=== PATIENT | male | born 1960 | race Caucasian/White ===

== ENCOUNTER 2023-12-10 08:51 | Emergency (ER) | payer OTHER, SELFPAY ==
[2023-12-10] MEDS ORDERED: TRAMADOL HCL 50 MG TAB ONE (09:14)
[2023-12-10] MEDS ORDERED: GABAPENTIN 300 MG CAP ONE (09:14)
--- NOTE | 2023-12-10 10:31 | ER ---
Nurse's Notes [facility] Name: Tani Del Toro Age: 63 yrs Sex: Male : 1960 Arrival Date: 12/10/2023 Time: 08:51 Bed 5 Private MD: Diagnosis: Strain of other muscles, fascia and tendons at shoulder and upper arm level, left arm;Strain of muscle(s) and tendon(s) of the rotator cuff of left shoulder Presentation: 12/09 08:56 Chief complaint: Patient states: 2 days ago was gardening and left shoulder has been aa5 hurting since then. Pt also states "the right side of my jaw feels sore when I bite down". 08:56 Coronavirus screen: At this time, the client does not indicate any symptoms associated aa5 with coronavirus-19. Ebola Screen: Patient denies travel to an Ebola-affected area in the 21 days before illness onset. Initial Sepsis Screen: Does the patient meet any 2 criteria? No. Patient's initial sepsis screen is negative. Does the patient have a suspected source of infection? No. Patient's initial sepsis screen is negative. Risk Assessment: Do you want to hurt yourself or someone else? Patient reports no desire to harm self or others. Onset of symptoms was November 2023. 08:56 Acuity: ROBBIE 3 aa5 08:56 Method Of Arrival: Ambulatory aa5 Historical: - Allergies: 09:06 No Known Allergies; aa5 - Home Meds: 09:06 Metoprolol Tartrate Oral [Active]; atorvastatin oral [Active]; aa5 - PMHx: 09:06 Hypertensive disorder; Hypercholesterolemia; aa5 - PSHx: 09:06 right knee replacement; aa5 - Immunization history:: Adult Immunizations unknown. - Infectious Disease History:: Denies. - Social history:: Smoking status: Patient denies any tobacco usage or history of. - Family history:: not pertinent. - Hospitalizations: : No recent hospitalization is reported. Screenin:00 [facility] ED Fall Risk Assessment (Adult) History of falling in the last 3 months, aa5 including since admission No falls in past 3 months (0 pts) Confusion or Disorientation No (0 pts) Intoxicated or Sedated No (0 pts) Impaired Gait No (0 pts) Mobility Assist Device Used No (0 pt) Altered Elimination No (0 pt) Score/Fall Risk Level 0 - 2 = Low Risk Oriented to surroundings, Maintained a safe environment, Educated pt \\T\\ family on fall prevention, incl call for assistance when getting out of bed. Abuse screen: Denies threats or abuse. Nutritional screening: No deficits noted. Tuberculosis screening: No symptoms or risk factors identified. Assessment: 08:56 General: Appears in no apparent distress. comfortable, Behavior is calm, cooperative, aa5 appropriate for age. Pain: Complains of pain in left shoulder Pain currently is 0 out of 10 on a pain scale. Quality of pain is described as sharp, Pain began 2-3 days ago. Is intermittent, Aggravated by movement. Neuro: Level of Consciousness is awake, alert, obeys commands, Oriented to person, place, time, situation. Cardiovascular: Denies chest pain, Patient's skin is warm and dry. Respiratory: Airway is patent Respiratory effort is even, unlabored, Respiratory pattern is regular, symmetrical, Denies shortness of breath. GI: No signs and/or symptoms were reported involving the gastrointestinal system. : No signs and/or symptoms were reported regarding the genitourinary system. EENT: No signs and/or symptoms were reported regarding the EENT system. Derm: Skin is pink, warm \\T\\ dry. Musculoskeletal: Reports pain in left shoulder. 09:25 Reassessment: Patient is alert, oriented x 3, equal unlabored respirations, skin aa5 warm/dry/pink. Vital Signs: 08:56 BP 145 / 100; Pulse 97; Resp 18 S; Temp 97.7(TE); Pulse Ox 95% on R/A; Weight 115.67 kg aa5 (R); Height 6 ft. 4 in. (R); 08:56 Body Mass Index 31.04 (115.67 kg, 193.04 cm) aa5 ED Course: 08:55 Patient arrived in ED. im 08:56 Markos Elam MD is Attending Physician. rn 08:56 Arm band placed on. aa5 08:56 Patient has correct armband on for positive identification. Placed in gown. Bed in low aa5 position. Call light in reach. Side rails up X 1. Adult w/ patient. Pulse ox on. NIBP on. 08:57 Angela Maldonado, TEMO is Primary Nurse. aa5 09:10 Triage completed. aa5 09:21 EKG done, by metal wire technician. reviewed by Markos Elam MD. [email or web address] 09:30 No provider procedures requiring assistance completed. aa5 10:35 XRAY Shoulder LEFT 2 view In Process Unspecified. EDMS Administered Medications: 09:25 Drug: traMADol PO 50 mg PO once Route: PO; aa5 09:25 Drug: Gabapentin PO 300 mg PO once Route: PO; aa5 Medication: 09:30 VIS not applicable for this client. aa5 Outcome: 10:31 Discharge ordered by . rn 10:47 Patient left the ED. Signatures: Dispatcher [employer] EDMS Markos Elam MD MD rn Calderon, Audri RN RN aa5 La Osborne RN RN Kaylah Benavides Jess [email or web address]
--- NOTE | 2023-12-10 10:31 | EDPHYS ---
Physician Documentation [facility] Name: Tani Del Toro Age: 63 yrs Sex: Male : 1960 Arrival Date: 12/10/2023 Time: 08:51 Bed 5 Private MD: ED Physician Markos Elam HPI: 12/09 09:11 This 63 yrs old Male presents to ER via Ambulatory with complaints of Shoulder Pain. rn 09:11 The patient or guardian complains of pain, that is acute. left shoulder. Onset: The rn symptoms/episode began/occurred 2 day(s) ago. Modifying factors: the symptoms are alleviated by nothing. The symptoms are aggravated by lifting weight, movement, rotation of arm. Severity of symptoms: At their worst the symptoms were moderate, in the emergency department the symptoms are unchanged. The patient has not experienced similar symptoms in the past. Patient reports left shoulder pain that began 2 days ago. Has just moved and has been doing a lot of lifting and repetitive movements. Patient reports pain to the left shoulder that is worse with range of motion, and elevation of the arm. Denies any chest pain or shortness of breath. No direct fall or trauma. No weakness.. Historical: - Allergies: 09:06 No Known Allergies; aa5 - Home Meds: 09:06 Metoprolol Tartrate Oral [Active]; atorvastatin oral [Active]; aa5 - PMHx: 09:06 Hypertensive disorder; Hypercholesterolemia; aa5 - PSHx: 09:06 right knee replacement; aa5 - Immunization history:: Adult Immunizations unknown. - Infectious Disease History:: Denies. - Social history:: Smoking status: Patient denies any tobacco usage or history of. - Family history:: not pertinent. - Hospitalizations: : No recent hospitalization is reported. ROS: 09:11 Constitutional: Negative for fever, chills, and weight loss, Neck: Negative for injury, rn pain, and swelling, Cardiovascular: Negative for chest pain, palpitations, and edema, Respiratory: Negative for shortness of breath, cough, wheezing, and pleuritic chest pain, Abdomen/GI: Negative for abdominal pain, nausea, vomiting, diarrhea, and constipation, MS/Extremity: Positive for left shoulder pain Neuro: Negative for weakness or numbness Exam: 09:11 Constitutional: This is a well developed, well nourished patient who is awake, alert, rn and in no acute distress. Cardiovascular: Regular rate and rhythm. No pulse deficits. Respiratory: Speaking full sentences, unlabored. MS/ Extremity: Pulses equal, no cyanosis. Neurovascular intact. Painful abduction of left shoulder and tenderness and bicipital groove as well as subacromial region. No discoloration. No swelling. No weakness. 09:23 ECG was reviewed by the Attending Physician. rn Vital Signs: 08:56 BP 145 / 100; Pulse 97; Resp 18 S; Temp 97.7(TE); Pulse Ox 95% on R/A; Weight 115.67 kg aa5 (R); Height 6 ft. 4 in. (R); 08:56 Body Mass Index 31.04 (115.67 kg, 193.04 cm) aa5 MDM: 08:56 Patient medically screened. rn 10:30 Differential diagnosis: Anterior dislocation without fracture, DJD, tendonitis. Data rn reviewed: vital signs, nurses notes, radiologic studies, plain films, and as a result, I will discharge patient. Counseling: I had a detailed discussion with the patient and/or guardian regarding the historical points, exam findings, and any diagnostic results supporting the discharge/admit diagnosis, radiology results, the need for outpatient follow up, to return to the emergency department if symptoms worsen or persist or if there are any questions or concerns that arise at home. Special discussion: I discussed with the patient/guardian in detail that at this point there is no indication for admission to the hospital. It is understood, however, that if the symptoms persist or worsen the patient needs to return immediately for re-evaluation. Based on the history and exam findings, there is no indication for further emergent testing or inpatient evaluation. I discussed with the patient/guardian the need to see the primary care provider for further evaluation of the symptoms. ED course: No acute findings and x-ray of the left shoulder order ECG. Sounds like repetitive motion and musculoskeletal injury is most likely the cause of his pain. Will discharge home with return precautions and pain medication as needed. Patient needs to ice and rest left shoulder and told to return if anything changes or worsens.. 12/09 09:11 Order name: XRAY Shoulder LEFT 2 view rn 12/09 09:11 Order name: EKG; Complete Time: 09:11 rn 12/09 09:11 Order name: EKG - Nurse/Tech; Complete Time: : rn EC: Rate is 87 beats/min. Rhythm is regular. QT interval is normal. No Q waves. T waves are rn Normal. No ST changes noted. Clinical impression: NSR w/ Non-specific ST/T Changes. Reviewed by me. Administered Medications: : Drug: traMADol PO 50 mg PO once Route: PO; aa5 09:25 Drug: Gabapentin PO 300 mg PO once Route: PO; aa5 Disposition Summary: 12/10/23 10:31 Discharge Ordered Notes: Location: Home rn Problem: new rn Symptoms: have improved rn Condition: Stable rn Diagnosis - Strain of other muscles, fascia and tendons at shoulder and upper arm level, left rn arm - Strain of muscle(s) and tendon(s) of the rotator cuff of left shoulder rn Followup: rn - With: Private Physician - When: As needed - Reason: Recheck today's complaints, Re-evaluation by your physician Discharge Instructions: - Discharge Summary Sheet rn - Shoulder Sprain rn Forms: - Medication Reconciliation Form rn - Antibiotic prompt care rn - Prescription Opioid Use rn - Patient Portal Instructions rn - Leadership Thank You Letter rn Prescriptions: - gabapentin 100 mg Oral capsule - take 1 capsule ORAL route every 12 hours As needed; 14 capsule; Refills: 0, rn Product Selection Permitted - Tramadol 50 mg Oral Tablet - take 1 tablet ORAL route every 8 hours as needed; 12 tablet; Refills: 0, rn Product Selection Permitted Signatures: Dispatcher [employer] Markos Mccauley MD MD rn Calderon, Audri, RN RN aa5
[2023-12-10 10:55] VITALS: BP 145/100; TEMP 97.7; O2SAT 95
--- NOTE | 2023-12-10 11:13 | RAD REPORT ---
EXAM DESCRIPTION: RAD - Shoulder Left 2 View - 12/10/2023 10:34 am CLINICAL HISTORY: PAIN COMPARISON: Chest Single View dated 11/09/2023; Chest Single View dated 08/01/2023; Chest Single View dated 01/06/2023; Chest Single View dated 01/26/2022No comparisons FINDINGS: Mild degenerative arthritic changes AC joint and glenohumeral joint. No fracture, dislocat ion or aggressive marrow lesion.
--- NOTE | 2023-12-12 13:01 | EKG ---
Test Date: 2023-12-10 Test Time: 09:17:32 Loading Supervisor: MISAEL MEASUREMENT RESULTS: Intervals: Rate: 87 HI: 164 QRSD: 134 QT: 404 QTc: 486 [place]: P: 51 HI: 164 QRS: -74 T: 27 INTERPRETIVE STATEMENTS: Normal sinus rhythm Right bundle branch block Left anterior fascicular block Bifascicular block Abnormal ECG No previous ECG available for comparison Electronically Signed On 12-12-23 12:55:55 CDT by Dario Pettit
== END 2023-12-10 10:47 | disposition home or self-care (01) ==
LOC: ER 08:51
DX: S46.812A Strain of other muscles, fascia and tendons at shoulder and upper arm level, left arm, initial encounter (principal); S46.012A Strain of muscle(s) and tendon(s) of the rotator cuff of left shoulder, initial encounter
CPT/HCPCS: 93005